=== PATIENT | female | born 1970 | race Caucasian/White ===

== ENCOUNTER 2021-07-11 13:59 | Inpatient (IN) ==
[~2021-07-11 13:59] MED LIST: Nicotine PATCH 7 MG/24 HR PATCH TRANSDERM SCH
[2021-07-11 15:30] LABS: Urine Appearance Clear; Urine Bilirubin Negative (Negative); Urine Blood Negative (Negative); Urine Color Yellow; Urine Glucose Negative (Negative); Urine Ketones Trace (Negative); Urine Nitrite Negative (Negative); Urine Protein Negative (Negative); Urine Specific Gravity 1.017 (1.002-1.030); Urine Urobilinogen Negative (Negative)
[2021-07-11 15:33] LABS: Urine Benzodiazepine Screen None Detected (None Detect); Urine Cannabinoids Screen None Detected (None Detect); Urine Opiates Screen None Detected (None Detect)
[2021-07-11] MEDS ORDERED: Al Hydrox/Mg Hydrox/Simet LIQ 30 ML UDC PO PRN (17:04)
[2021-07-11] MEDS ORDERED: Nicotine GUM 2MG FRUIT FLAVOR PO PRN (18:00)
[2021-07-11 20:49] LABS: ABS Eosinophils 0.2 10^3/ul (0-0.6); ABS Lymphocytes 1.4 10^3/ul (1.0-4.8); ABS Monocytes 0.6 10^3/ul (0-0.8); ABS Neutrophils 4.6 10^3/ul (1.5-7.7); Eosinophil % 2.4 %; Hematocrit 40 % (35-47); Hemoglobin 13.2 g/dL (12.0-16.0); Mean Corpuscular HGB Conc 33 g/dL (31-36); Mean Corpuscular Hemoglobin 31 pg (27-31); Mean Corpuscular Volume 92 fL (80-97); Mean Platelet Volume 9.4 fL (7.4-10.4); Nucleated Red Blood Cells % 0.1; Platelet Count 178 10^3/uL (150-450); Red Cell Distribution Width 14 % (10-15); White Blood Count 6.8 10^3/uL (3.5-10.8)
[2021-07-11 21:09] LABS: ALT 14 U/L (7-52); AST 19 U/L (13-39); Albumin 4.2 g/dL (3.2-5.2); Albumin/Globulin Ratio 1.6 (1-3); Alkaline Phosphatase 54 U/L (35-149); Anion Gap 6 mmol/L (2-11); Blood Urea Nitrogen 13 mg/dL (6-24); CO2 Carbon Dioxide 25 mmol/L (22-32); Chloride 106 mmol/L (101-111); Globulin 2.7 g/dL (2-4); Glucose 84 mg/dL (70-100); Potassium 3.9 mmol/L (3.5-5.0); Sodium 137 mmol/L (135-145); Total Protein 6.9 g/dL (6.4-8.9); eGFR CKD-EPI 107.1 (>60)
[2021-07-11 21:12] LABS: Acetaminophen < 15 mcg/mL; Alcohol, S < 13 mg/dL (<13); Salicylate < 2.50 mg/dL (<30)
[2021-07-11 21:27] LABS: TSH Ultra Thyroid Stim Horm 3.31 mcIU/mL (0.34-5.60)
[2021-07-12] MEDS: Vitamin THERAPEUTIC TAB PO SCH (10:04)
[2021-07-12] MEDS: Nicotine PATCH 7 MG/24 HR PATCH TRANSDERM SCH (10:05)
[2021-07-13] MEDS: Vitamin THERAPEUTIC TAB PO SCH (10:28)
[2021-07-13] MEDS: Nicotine PATCH 7 MG/24 HR PATCH TRANSDERM SCH (10:29)
[2021-07-14] MEDS: Vitamin THERAPEUTIC TAB PO SCH (08:26)
[2021-07-14] MEDS: Nicotine PATCH 7 MG/24 HR PATCH TRANSDERM SCH (08:26)
[2021-07-15] MEDS: Vitamin THERAPEUTIC TAB PO SCH (09:14)
[2021-07-15] MEDS: Nicotine PATCH 7 MG/24 HR PATCH TRANSDERM SCH (09:15)
[2021-07-16 08:26] LABS: HDL Cholesterol 67.9 mg/dL
[2021-07-16] MEDS: Nicotine PATCH 7 MG/24 HR PATCH TRANSDERM SCH (11:17)
[2021-07-16] MEDS: Vitamin THERAPEUTIC TAB PO SCH (11:18)
[2021-07-17] MEDS: Vitamin THERAPEUTIC TAB PO SCH (09:04)
[2021-07-17] MEDS: Nicotine PATCH 7 MG/24 HR PATCH TRANSDERM SCH (09:04)
[2021-07-18] MEDS: Vitamin THERAPEUTIC TAB PO SCH (09:05)
[2021-07-18] MEDS: Nicotine PATCH 7 MG/24 HR PATCH TRANSDERM SCH (09:06)
[2021-07-19] MEDS: Vitamin THERAPEUTIC TAB PO SCH (10:20)
[2021-07-19] MEDS: Nicotine PATCH 7 MG/24 HR PATCH TRANSDERM SCH (10:21)
[2021-07-20] MEDS: Vitamin THERAPEUTIC TAB PO SCH (09:44)
[2021-07-20] MEDS: Nicotine PATCH 7 MG/24 HR PATCH TRANSDERM SCH (09:45)
[2021-07-21] MEDS: Vitamin THERAPEUTIC TAB PO SCH (09:32)
[2021-07-21] MEDS: Nicotine PATCH 7 MG/24 HR PATCH TRANSDERM SCH (09:33)
[2021-07-22] MEDS: Vitamin THERAPEUTIC TAB PO SCH (09:26)
[2021-07-22] MEDS: Nicotine PATCH 7 MG/24 HR PATCH TRANSDERM SCH (09:26)
[2021-07-23 09:05] VITALS: BP 123/78
[2021-07-23] MEDS: Vitamin THERAPEUTIC TAB PO SCH (09:16)
[2021-07-23] MEDS: Nicotine PATCH 7 MG/24 HR PATCH TRANSDERM SCH (09:16)
== END 2021-07-23 12:15 | disposition home or self-care (01) | DRG 753 ==
LOC: ED 13:59 → BSU 17:29
PROVIDERS: ADMIT Psychiatry & Neurology Psychiatry; ATTEND Student in an Organized Health Care Education/Training Program

== ENCOUNTER 2022-07-06 16:27 | Inpatient (IN) ==
[2022-07-06 17:41] LABS: ABS Basophils 0.1 10^3/ul (0-0.2); ABS Eosinophils 0.2 10^3/ul (0-0.6); ABS Lymphocytes 1.3 10^3/ul (1.0-4.8); ABS Monocytes 0.6 10^3/ul (0-0.8); ABS Neutrophils 3.9 10^3/ul (1.5-7.7); Eosinophil % 3.9 %; Hematocrit 44 % (35-47); Hemoglobin 14.4 g/dL (12.0-16.0); Lymphocyte % 21.5 %; Mean Corpuscular HGB Conc 33 g/dL (31-36); Mean Corpuscular Hemoglobin 30 pg (27-31); Mean Corpuscular Volume 91 fL (80-97); Mean Platelet Volume 9.4 fL (7.4-10.4); Nucleated Red Blood Cells % 0.1; Platelet Count 197 10^3/uL (150-450); Red Blood Count 4.81 10^6 /uL (3.70-4.87); Red Cell Distribution Width 15 % (10-15); White Blood Count 6.2 10^3/uL (3.5-10.8)
[2022-07-06 18:03] LABS: Urine Benzodiazepine Screen None Detected (None Detect); Urine Cannabinoids Screen None Detected (None Detect); Urine Opiates Screen None Detected (None Detect)
[2022-07-06 18:04] LABS: ALT 69 U/L (7-52); AST 43 U/L (13-39); Acetaminophen < 15 mcg/mL; Albumin 4.4 g/dL (3.2-5.2); Albumin/Globulin Ratio 1.8 (1-3); Alcohol, S < 13 mg/dL (<13); Alkaline Phosphatase 63 U/L (35-149); Blood Urea Nitrogen 17 mg/dL (6-24); CO2 Carbon Dioxide 31 mmol/L (22-32); Calcium 10.1 mg/dL (8.6-10.3); Chloride 103 mmol/L (101-111); Globulin 2.5 g/dL (2-4); Glucose 96 mg/dL (70-100); Lithium 0.66 mmol/L (0.6-1.2); Salicylate < 2.50 mg/dL (<30); Sodium 138 mmol/L (135-145); Total Protein 6.9 g/dL (6.4-8.9)
[2022-07-06 18:05] LABS: Anion Gap 4 mmol/L (2-11); Potassium 5.2 mmol/L (3.5-5.0)
[2022-07-06 18:08] LABS: HCG Pregnancy < 0.60 mIU/mL
[2022-07-06] MEDS ORDERED: Al Hydrox/Mg Hydrox/Simet LIQ 30 ML UDC PO PRN (22:12)
[2022-07-07 08:23] LABS: HDL Cholesterol 65.3 mg/dL
[2022-07-07] MEDS: Vitamin THERAPEUTIC TAB PO SCH (15:51)
[2022-07-07] MEDS ORDERED: LURASIDONE 20 MG PO SCH (17:00)
[2022-07-08] MEDS: Vitamin THERAPEUTIC TAB PO SCH (08:22)
[2022-07-08 21:11] LABS: Albumin 4.5 g/dL (3.2-5.2); Albumin/Globulin Ratio 1.9 (1-3); Calcium 9.6 mg/dL (8.6-10.3); Globulin 2.4 g/dL (2-4); Lithium 0.53 mmol/L (0.6-1.2); Potassium 4.9 mmol/L (3.5-5.0); Total Bilirubin 0.5 mg/dL (0.2-1.0); Total Protein 6.9 g/dL (6.4-8.9); eGFR CKD-EPI 80.7 (>60)
[2022-07-09] MEDS: Vitamin THERAPEUTIC TAB PO SCH (09:46)
[2022-07-10] MEDS: Vitamin THERAPEUTIC TAB PO SCH (09:37)
[2022-07-10 10:24] VITALS: BP 134/87
== END 2022-07-10 12:02 | disposition home or self-care (01) | DRG 756 ==
LOC: ED 16:27 → BSU 21:05
PROVIDERS: ADMIT Psychiatry & Neurology Psychiatry; ATTEND Psychiatry & Neurology Psychiatry

== ENCOUNTER 2024-07-12 11:08 | Inpatient (IN) ==
[2024-07-12 11:52] LABS: Urine Appearance Turbid; Urine Bilirubin Negative (Negative); Urine Blood Negative (Negative); Urine Color Light-Yellow; Urine Glucose Negative (Negative); Urine Ketones 1+ (Negative); Urine Nitrite Negative (Negative); Urine Protein Negative (Negative); Urine Specific Gravity 1.009 (1.002-1.030); Urine Urobilinogen Negative (Negative)
[2024-07-12 12:01] LABS: ABS Basophils 0.1 10^3/uL (0.0-0.1); ABS Lymphocytes 0.9 10^3/uL (1.0-4.8); ABS Monocytes 0.4 10^3/uL (0.0-0.9); ABS Neutrophils 5.1 10^3/uL (1.5-7.6); Eosinophil % 0.2 %; Hematocrit 42.1 % (35-45); Lymphocyte % 13.7 %; Mean Corpuscular Hemoglobin 29.7 pg (27-33); Mean Corpuscular Hgb Conc 33.3 g/dL (31-36); Mean Corpuscular Volume 89.2 fL (80-97); Mean Platelet Volume 9.3 fL (7.5-11.2); Nucleated Red Blood Cells % 0.1 %/100WBC (0.0-0.8); Platelet Count 212 10^3/uL (150-450); Red Blood Count 4.73 10^6/uL (3.63-4.92); Red Cell Distribution Width 14.6 % (12-17); White Blood Count 6.5 10^3/uL (3.8-11.8)
[2024-07-12 12:06] LABS: Urine Benzodiazepine Screen None Detected (None Detect); Urine Cannabinoids Screen None Detected (None Detect); Urine Opiates Screen None Detected (None Detect)
[2024-07-12 12:16] LABS: Urine Bacteria 1+ /HPF (Absent); Urine Red Blood Cell 1+(3-5/hpf) /HPF (0-Trace); Urine Squamous Epithelial Cell Present /HPF (Absent); Urine White Blood Cell 3+(>20/hpf) /HPF (0-Trace)
[2024-07-12 12:25] LABS: ALT 17 U/L (7-52); AST 26 U/L (13-39); Acetaminophen < 15 mcg/mL; Albumin 4.6 g/dL (3.5-5.7); Albumin/Globulin Ratio 1.8 (1-3); Alcohol, S < 13 mg/dL (<13); Alkaline Phosphatase 82 U/L (35-149); Anion Gap 12 mmol/L (2-16); Blood Urea Nitrogen 11 mg/dL (6-24); CO2 Carbon Dioxide 22 mmol/L (22-32); Calcium 9.7 mg/dL (8.6-10.3); Chloride 99 mmol/L (101-111); Creatinine, Serum 0.76 mg/dL (0.51-0.95); Globulin 2.6 g/dL (2-4); Glucose 106 mg/dL (70-100); Potassium 3.9 mmol/L (3.5-5.0); Salicylate < 2.50 mg/dL (<30); Sodium 133 mmol/L (135-145); Total Bilirubin 0.5 mg/dL (0.2-1.0); Total Protein 7.2 g/dL (6.4-8.9); eGFR CKD-EPI 92.5 (>60)
[2024-07-12 12:40] LABS: TSH Ultra Thyroid Stim Horm 1.97 mcIU/mL (0.34-5.60)
[2024-07-12] MEDS ORDERED: OLANZapine 5 mg TAB *ODT PO PRN (13:06)
[2024-07-14] MEDS: Nitrofurantoin (monohydrate/macrocrystals) 100 mg CAP PO SCH (19:59)
[2024-07-15 08:05] LABS: HDL Cholesterol 65.6 mg/dL
[2024-07-15] MEDS: Dextran 70/Hypromellose Tears Eye Drops 15 ml BTL (for Artificials Tears) BOTH EYES PRN (19:52)
[2024-07-15] MEDS: Lithium Carbonate ER 450mg TAB PO SCH (20:00)
[2024-07-20] MEDS: Al Hydrox/Mg Hydrox/Simet LIQ 30 ML UDC PO PRN (02:44)
[2024-07-20 18:54] LABS: Urine Appearance Clear; Urine Bilirubin Negative (Negative); Urine Blood Negative (Negative); Urine Color Light-Yellow; Urine Glucose Negative (Negative); Urine Ketones Negative (Negative); Urine Nitrite Negative (Negative); Urine Protein Negative (Negative); Urine Specific Gravity 1.015 (1.002-1.030); Urine Urobilinogen Negative (Negative); Urine pH 6.5 (5.0-8.0)
[2024-07-21 14:32] VITALS: BP 112/82
[2024-07-21] MEDS ORDERED: Lithium Carbonate ER 450mg TAB PO SCH (21:00)
== END 2024-07-21 17:35 | disposition home or self-care (01) | DRG 753 ==
LOC: ED 11:08 → EDHOLD 13:03 → BSU 14:25
PROVIDERS: ADMIT Student in an Organized Health Care Education/Training Program; ATTEND Psychiatry & Neurology Psychiatry